=== PATIENT | female | born 2000 | race Two or more races ===

== ENCOUNTER 2022-10-10 19:29 | Emergency (ER) | payer MEDICAID, OTHER ==
[~2022-10-10] VITALS: Ht 162.6 cm; Wt 62.6 kg
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
[2022-10-10] MEDS ORDERED: IBUPROFEN 600 MG TABLET ONE (20:21)
[2022-10-10] MEDS ORDERED: IBUPROFEN 600 MG TABLET PO ONE (20:30)
--- NOTE | 2022-10-10 20:47 | NUR ---
X-RAY AT BEDSIDE
[2022-10-10] MEDS ORDERED: CYCL5TAB PO (21:11)
[2022-10-10 21:21] VITALS: BP 104/59; TEMP 98.1
--- NOTE | 2022-10-10 21:21 | NUR ---
Patient discharged to home in stable condition. Written and verbal after care instructions given. Patient verbalizes understanding of instruction.
[2022-10-15] MEDS ORDERED: LIDO30AD10 TP (21:40)
[2022-10-15] MEDS ORDERED: METH-647 PO (21:40)
[2022-10-15] MEDS ORDERED: IBUP-1955 PO (21:40)
[2022-10-15] MEDS ORDERED: LORA10TA7 PO (21:40)
== END 2022-10-10 21:22 | disposition home or self-care (01) ==
LOC: ER 19:31
DX: M25.511 Pain in right shoulder (principal); Z60.2 Problems related to living alone; V89.2XXA Person injured in unspecified motor-vehicle accident, traffic, initial encounter; Y93.89 Activity, other specified; Y92.89 Other specified places as the place of occurrence of the external cause; Y99.8 Other external cause status
CPT/HCPCS: 73030-TC; 73060-TC